=== PATIENT | female | born 1950 | race Caucasian/White ===

== ENCOUNTER 2019-05-17 06:51 | Day surgery (SDC) | payer MEDICARE, OTHER ==
[~2019-05-17 06:51] MED LIST: CEFAZOLIN 2 Gram 2 GM/50 ML BAG IVPB ONE; CELECOXIB 100 MG CAPSULE PO ONE; FAMOTIDINE 20MG TABLET PO ONE; MECLIZINE 25 MG TABLET PO ONE; METOCLOPRAMIDE 10 MG TABLET PO ONE; VANCOMYCIN 1GM/200ML PREMIX 1 GM/200 ML PIGGYBACK IVPB ONE
[2019-05-17] MEDS ORDERED: EPHEDRINE SULFATE 50 MG/ML ML IV ONE (06:52)
[2019-05-17] MEDS ORDERED: PROPOFOL 10 MG/ML VIAL IV ONE (06:52)
[2019-05-17] MEDS ORDERED: LIDOCAINE 2% MDV (20MG/ML) 20ML VIAL IV ONE (06:52)
[2019-05-17] MEDS ORDERED: MIDAZOLAM HCL 2MG/2ML VIAL IV ONE (06:52)
[2019-05-17] MEDS ORDERED: DEXAMETHASONE 4 MG/ML 1ML VIAL IVP ONE (06:52)
[2019-05-17] MEDS ORDERED: ROPIVACAINE HCL (NAROPIN) /PF 5MG/ML 20ML VIAL IV ONE (06:52)
[2019-05-17] MEDS ORDERED: RINGERS SOLUTION,LACTATED 1,000 ML IV ONE ×2 (07:47→09:57)
[2019-05-17 08:44] LABS: ABO GROUP A; ANTIBODY SCREEN NEGATIVE (NEGATIVE); RH TYPE NEGATIVE
[2019-05-17] MEDS ORDERED: BUPIVACAINE 0.5% W/EPI MPF 30 ML VIAL IU ONE (09:53)
[2019-05-17] MEDS ORDERED: TRANEXAMIC ACID 1,000 MG/10 ML ML IV ONE (09:54)
[2019-05-17] MEDS ORDERED: TRANEXAMIC ACID 1,000 MG/10 ML ML IU ONE (09:54)
[2019-05-17] MEDS ORDERED: ACETAMINOPHEN 325 MG TAB PO PRN (11:06)
[2019-05-17] MEDS ORDERED: ACETAMINOPHEN W/ CODEINE 300MG/60MG TABLET PO PRN ×2 (11:06)
[2019-05-17] MEDS ORDERED: HYDROMORPHONE HCL 2 MG/ML VIAL IM PRN (11:06)
[2019-05-17] MEDS ORDERED: MAGNESIUM HYDROXIDE 30 ML UDC PO PRN (11:06)
[2019-05-17] MEDS ORDERED: ZOLPIDEM TARTRATE 5 MG TABLET PO PRN (11:06)
[2019-05-17] MEDS ORDERED: ONDANSETRON HCL IV 4 MG/2 ML VIAL IVP PRN (11:06)
[2019-05-17] MEDS ORDERED: BISACODYL 10 MG SUPP RC PRN (11:06)
[2019-05-17] MEDS ORDERED: DIPHENHYDRAMINE HCL 25 MG CAPSULE PO PRN (11:06)
[2019-05-17] MEDS ORDERED: AL HYDROX/MAG HYDROX 30ML UD PO PRN (11:06)
[2019-05-17] MEDS ORDERED: KETOROLAC 30 MG/ML VIAL IVP PRN (11:06)
[2019-05-17] MEDS ORDERED: NALOXONE 0.4 MG/1 ML VIAL IVP PRN (11:06)
[2019-05-17] MEDS ORDERED: HYDROCODONE/APAP 10/325 TABLET PO PRN (11:06)
[2019-05-17] MEDS: POTASSIUM CHLORIDE/D5-0.9%NACL 20 MEQ/1,000 ML BAG IV SCH ×2 (12:52→21:05)
[2019-05-17] MEDS ORDERED: POTASSIUM CHLORIDE 20 MEQ TABLET PO PRN (12:53)
[2019-05-17] MEDS ORDERED: ALPRAZOLAM 0.25 MG TABLET PO PRN (12:53)
[2019-05-17] MEDS ORDERED: FUROSEMIDE 40 MG TABLET PO PRN (12:53)
[2019-05-17] MEDS: TRAMADOL HCL 50 MG TABLET PO PRN (13:59)
--- NOTE | 2019-05-17 15:23 | Rehab Evaluation ---
Patient Information - Patient Information Diagnosis: OA right knee Ordered Treatment: OT Evaluate and Treat Status: Initial Evaluation Surgery: Yes (right TKA 05/17/19) Past Medical/Surgical Hx: PAST MEDICAL/SURGICAL HISTORY Surgery to Affected Area? No Recent Surgery? Past Surgical History D AND C RIGHT BREAST LUMPECTOMY C SCOPES PMH - Respiratory Hx Respiratory Disorders Yes Hx Bronchitis Yes: USED TO GET A LOT BEFORE SHE STOPPED SMOKING PMH - Cardiovascular Hx Cardiovascular Disorders Yes Hx Edema Yes: AT TIMES Hx Hypertension Yes: FAIR CONTROL Exercise Tolerance Fair PMH - Neuro Hx Neurological Disorders No PMH - GI Hx Gastrointestinal Disorders Yes Hx Weight Loss/Weight Gain Yes: 30 LB GAIN OVER LAST 4 MONTHS Comment: DIVERTICULOSIS PMH - Hx Genitourinary Disorders Yes Hx Renal Disease Yes: MINIMAL CHANGE DISEASE NO PROBLEM AT THIS TIME PMH - Endocrine Hx Endocrine Disorders No PMH - Musculoskeletal Hx Musculoskeletal Disorders Yes Hx Arthritis Yes: KNEES PMH - Psych Hx Psychiatric Problems No PMH - Hematology/Oncology Hx Hematology/Oncology Yes Disorders Hx Bruising Yes: BRUISES EASILY Hx Cancer Yes: BREAST 1992 Hx Chemotherapy Yes Hx Radiation Therapy Yes Premorbid Status: Detail (Pt lives with spouse in a 1 story house with a ramp at the entrance. She has a walk in shower with a seat, grab bars and hand held shower head and an elevated toilet with grab bars. She owns a 2 wheeled walker and cane. She is typically responsible for all home mgmt, meal prep and laundry tasks.) Precautions: [place], Fall, Other (WBAT right LE) - Time With Patient Total Time Spent With Patient (Min): 45 Treatment Procedures: Detail (OT eval low complexity) Subjective Information - Subjective Information Per Patient Objective Data - Pain Pain Present: Yes (10/19) - Mental Status Patient Orientation: Oriented x3 - Visual Perception Appears within normal limits for therapeutic activities - ROM Within normal limits (Miguel UE AROM WNL) - Strength/Tone Within normal limits (Miguel UE strength WNL) - Coordination Appears within normal limits for therapeutic activities - Bed Mobility Needs Assist (Pt required min assist to lift right leg into bed.) - Transfers Independent (Ind with sit to stand from EOB and commode heights.) - Balance Balance Sitting: Good Balance Standing: Good - Sensation Intact - Gait Detail (Pt ambulating in room with 2 wheeled walker and CG assist.) - ADL's/IADL's Detail (Pt educated and able to demonstrate learning of modified LE dressing techniques including doffing slipper socks and donning sweatpants, socks and tennis shoes. Pt was able to doff tennis shoes and socks Indly using modified techniques. Reviewed techniques for donning andi sock as well as kitchen, laundry and shower safety and modifications, pt verbalized understanding.) Therapy Assessment - Therapy Assessment Detail (Pt demonstrates Ind with modified LE dressing techniques.) Problem List - Problem List Occupational Therapy Problem List: Detail (No current IP OT problems identified.) Goals - Goals Occupational Therapy Goals: No current IP OT goals identified. Prognosis - Prognosis Good Plan - Plan Occupational Therapy Plan: Pt is discharged from IP OT. Thank you for this referral.
--- NOTE | 2019-05-17 16:20 | Rehab Evaluation ---
Patient Information - Patient Information Diagnosis: OA right knee Ordered Treatment: PT Evaluate and Treat Status: Initial Evaluation Surgery: Yes (right TKA 05/17/19) Past Medical/Surgical Hx: PAST MEDICAL/SURGICAL HISTORY Surgery to Affected Area? No Recent Surgery? Past Surgical History D AND C RIGHT BREAST LUMPECTOMY C SCOPES PMH - Respiratory Hx Respiratory Disorders Yes Hx Bronchitis Yes: USED TO GET A LOT BEFORE SHE STOPPED SMOKING PMH - Cardiovascular Hx Cardiovascular Disorders Yes Hx Edema Yes: AT TIMES Hx Hypertension Yes: FAIR CONTROL Exercise Tolerance Fair PMH - Neuro Hx Neurological Disorders No PMH - GI Hx Gastrointestinal Disorders Yes Hx Weight Loss/Weight Gain Yes: 30 LB GAIN OVER LAST 4 MONTHS Comment: DIVERTICULOSIS PMH - Hx Genitourinary Disorders Yes Hx Renal Disease Yes: MINIMAL CHANGE DISEASE NO PROBLEM AT THIS TIME PMH - Endocrine Hx Endocrine Disorders No PMH - Musculoskeletal Hx Musculoskeletal Disorders Yes Hx Arthritis Yes: KNEES PMH - Psych Hx Psychiatric Problems No PMH - Hematology/Oncology Hx Hematology/Oncology Yes Disorders Hx Bruising Yes: BRUISES EASILY Hx Cancer Yes: BREAST 1992 Hx Chemotherapy Yes Hx Radiation Therapy Yes Premorbid Status: Detail (Pt lives with spouse in a 1 story house with a ramp at the entrance. She has a walk in shower with a seat, grab bars and hand held shower head and an elevated toilet with grab bars. She owns a 2 wheeled walker and cane. She is typically responsible for all home mgmt, meal prep and laundry tasks.) Precautions: [place], Fall, Other (WBAT right LE) - Time With Patient Total Time Spent With Patient (Min): 25 Treatment Procedures: Detail (Initial Evaluation, gait training) Subjective Information - Subjective Information Per Patient (The patient had complaints of level 7 R knee pain.) Objective Data - Mental Status Patient Orientation: Oriented x3 - Visual Perception Appears within normal limits for therapeutic activities - ROM Not within normal limits (The patient's R knee AROM is limited s/p surgery. All other AROM is WNL.) - Strength/Tone Other (The patient's LE strength was not tested s/p surgery however is functional.) - Bed Mobility Independent (The patient is independent with supine to and from sit transfer.) - Transfers Independent (The patient was independent with sit to and from stand transfer.) - Balance Balance Sitting: Good Balance Standing: Good - Sensation Intact - Gait Detail (The patient ambulated with front wheeled walker WBAT on the R LE with supervision for safety a distance of 50 feet x 1.) Therapy Assessment - Therapy Assessment Detail (The patient was independent with bed mobility and transfers and ambulated with supervision for safety. The patient will be seen for 1 to 2 PT sessions for completion of PT inpt. goals.) Problem List - Problem List Physical Therapy Problem List: Detail (Decreased R knee AROM and decreased R LE strength.) Occupational Therapy Problem List: Detail (No current IP OT problems identified.) Goals - Goals Physical Therapy Goals: 1) The patient will ambulate independently household distance with front wheeled walker WBAT on the R LE. 2) The patient will verbalize/demonstrate proper technique of stair climbing. 3) The patient will be independent with TKA HEP. Occupational Therapy Goals: No current IP OT goals identified. Prognosis - Prognosis Good Plan - Plan Physical Therapy Plan: PT 1-2 sessions for gait training and instruction in HEP. Occupational Therapy Plan: Pt is discharged from IP OT. Thank you for this referral.
[2019-05-17] MEDS: CEFAZOLIN 2 Gram 2 GM/50 ML BAG IVPB SCH (16:44)
[2019-05-17] MEDS: GABAPENTIN 300 MG CAPSULE PO SCH ×2 (16:44→21:11)
[2019-05-17] MEDS: DOCUSATE SODIUM 100 MG CAPSULE PO SCH (21:11)
[2019-05-17] MEDS ORDERED: LOSARTAN POTASSIUM 100 MG TABLET PO SCH (22:00)
[2019-05-17] MEDS ORDERED: ATENOLOL 25 MG TABLET PO SCH (22:00)
[2019-05-17] MEDS ORDERED: AMLODIPINE BESYLATE 5MG TAB PO SCH (22:00)
[2019-05-18] MEDS: CEFAZOLIN 2 Gram 2 GM/50 ML BAG IVPB SCH ×2 (01:30→10:08)
[2019-05-18] MEDS: HYDROCODONE/APAP 10/325 TABLET PO PRN ×2 (06:42→10:08)
[2019-05-18 08:04] LABS: HEMATOCRIT 36.8 % (35.0-47.0); HEMOGLOBIN 11.3 gm/dl (11.6-16.0)
[2019-05-18 08:18] LABS: BLOOD UREA NITROGEN 13 mg/dL (8-23); CREATININE 0.6 mg/dL (0.5-0.9); EST GLOMERULAR FILTRATION RATE > 60 mL/min; GLUCOSE,RANDOM 128 mg/dL (74-109)
[2019-05-18] MEDS ORDERED: RIVAROXABAN 10 MG TABLET PO SCH (10:00)
[2019-05-18] MEDS ORDERED: FERROUS SULFATE 325 MG TAB PO SCH (10:00)
[2019-05-18] MEDS: GABAPENTIN 300 MG CAPSULE PO SCH (10:08)
[2019-05-18] MEDS: DOCUSATE SODIUM 100 MG CAPSULE PO SCH (10:08)
--- NOTE | 2019-05-18 10:10 | Physical Therapy Tx Note ---
Physical Therapy Tx Note - Treatment Note Tolerated: Good Total Time Spent With Patient: 30 Physical Therapy Tx Note: Detail (Pt was sitting up in bed with ice on knee and ankle compression unhooked. Pt stated pain was zero at rest. Pt was independent with bed mobility and transfers. Pt ambulated with FWW with contact gaurd assist for 140' with one rest period. Pt did three stairs down and up with min. verbal cuing for proper gait pattern and contact gaurd assist. Returned Pt to room reviewed exercises and was independent, left Pt in recliner with ice pack on knee and nursing called for pain meds. Pt reported pain after walking 06/19.) Physical Therapy Problem List: Detail (Decreased R knee AROM and decreased R LE strength.) Physical Therapy Goals: 1) The patient will ambulate independently household distance with front wheeled walker WBAT on the R LE. 2) The patient will verbalize/demonstrate proper technique of stair climbing. 3) The patient will be independent with TKA HEP. Prognosis: Good Physical Therapy Plan: Pt to be discharged as Pt has met all PT goals.
[2019-05-18] MEDS: POTASSIUM CHLORIDE/D5-0.9%NACL 20 MEQ/1,000 ML BAG IV SCH (10:16)
[2019-05-18] MEDS: TRAMADOL HCL 50 MG TABLET PO PRN (12:12)
--- NOTE | 2019-05-26 10:51 | Operative Note ---
DATE OF SURGERY: 05/17/2019 PREOPERATIVE DIAGNOSIS: End-stage arthrosis of the right knee. POSTOPERATIVE DIAGNOSIS: End-stage arthrosis of the right knee. OPERATION: Cemented right total knee arthroplasty using [employer] components with a size 5 cobalt chrome femur, a size 4 stemmed tibia baseplate, a 9 mm lipped tibial insert, and a 32 mm all-plastic patella. STAFF SURGEON: Luís Yates MD ANESTHESIA: Spinal. PREPARATION: Chloraprep. INDIVIDUAL CONSIDERATIONS: None. PROCEDURE: The patient was taken to the operating room, placed supine on the operating room table. She had a successful induction of a spinal anesthetic. The right lower extremity was prepped and draped in the usual fashion. The limb was elevated and tourniquet was inflated to 250 mmHg. Sharp dissection carried down through skin and subcutaneous tissue. Small veins were coagulated with a Bovie. A medial arthrotomy was performed. The patella was everted and the knee was flexed. The patient had exposed bone with bone loss in the medial and patellofemoral compartments with large osteophytes. Fat pad was resected, ACL was sacrificed, and provisional anterior meniscectomies were performed. The capsule was released from the medial proximal tibia. The initial femoral pilot control operator hole was then made freehand. The intramedullary femoral cutting jig was placed. It was cut in 7.0 degrees of valgus and adjusted for rotation and secured with pins for a 10 mm resection. The initial transverse cut was then made. The skin guide was placed in the anterior and posterior pilot control operator holes. It was cut in 3 degrees of external rotation. The anterior and posterior cuts followed by chamfer cuts were made. Osteophytes removed, and a size 5 trial was placed and found to fit well. The tibia was brought forward, and the remainder of the meniscal remnants removed with a Bovie. The extraarticular tibial cutting jig was placed. It was cut in neutral with a 3-degree AP slope. It was set for a 9 mm resection keyed off the high lateral side and secured with pins. When cutting the tibia, care was taken to preserve the PCL insertion on the tibia. After removing large medial osteophytes, I could fit a size 4. It was adjusted for rotation and secured with pins. With a 9 mm trial and femoral trial, there was excellent motion and stability. Ligamentous balance, rotation alignment, and patellofemoral tracking even at this point were normal. Femoral pilot control operator holes were impacted and tibial keel stamp was impacted, and these trial components were removed. The patient had a relatively thick patella and roughly 9 mm of bone was removed freehand. I could easily fit a 32 patella, and the 3 pilot control operator holes were drilled. The tourniquet was let down briefly to get bleeders posteriorly and then placed back up again. The knee was then thoroughly irrigated out with pulsatile Betadine and saline. Bony surfaces were then dried. Prior to cementing, the surfaces were dried with a CarboJet. A size 4 stemmed tibia baseplate was cemented into place followed by impaction of the 9 mm lipped tibial insert followed by cementing in the size 5 cobalt chrome femur followed by cementing in the 32 mm all-plastic patella. The implant surfaces were compressed, excess cement was removed. After the cement had set, there was excellent motion and stability. Ligamentous balance, rotation alignment, and patellofemoral tracking were normal. No lateral release was required. Final irrigation, and then tourniquet was let down. Hemostasis was obtained with a Bovie. The periosteum, subcu, and skin were infiltrated with 30 mL of 0.5% Marcaine with epinephrine. The capsule was then closed with a running #2 quill, subcu was closed in layers with running 0 quill, skin was closed with caden. Then 1 g of tranexamic acid was mixed with 30 mL of saline and injected into the knee through a sterile 18- gauge needle, and a sterile bulky compressive dressing was applied. The patient tolerated the procedure well. Needle and sponge counts were correct. Estimated blood loss was minimal, and she was taken back to recovery in good condition. There were no complications. ROMA
== END 2019-05-18 14:30 | disposition home health service (06) ==
LOC: SUR 06:51 → MEDSURG 12:11 → SUR 05-18 14:30
PROVIDERS: ATTEND Orthopaedic Surgery
DX: M17.11 Unilateral primary osteoarthritis, right knee (principal); I10 Essential (primary) hypertension; Z87.891 Personal history of nicotine dependence
CPT/HCPCS: 27447; 01402; 64447; 85018; 85014; 80048; 86900; 86901; 86850; 76942; C1776 ×2; J1885; J0690 ×2; J3490 ×2; J2795; J3370; J3480; J7120